=== PATIENT | male | born 1985 | race Caucasian/White ===

== ENCOUNTER 2017-01-12 00:19 | Emergency (ER) | payer MEDICAID, OTHER ==
[~2017-01-12] VITALS: Ht 167.6 cm; Wt 91.0 kg
[2017-01-12 00:21] VITALS: Ht 167.6 cm; Wt 91.0 kg
[2017-01-12] MEDS ORDERED: LIDOCAINE 1% (MDV) 20 ML INJ INJ STA (03:58)
[2017-01-12] MEDS ORDERED: HYDROCODONE/APAP (5/325) TAB PO ONE (04:00)
[2017-01-12] MEDS ORDERED: IBUP-1542 PO (04:44)
[2017-01-12] MEDS ORDERED: HYDR-906 PO (04:44)
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
== END 2017-01-12 04:55 | disposition home or self-care (01) ==
LOC: FTE 00:19
DX: S01.511A Laceration without foreign body of lip, initial encounter (principal); Y08.89XA Assault by other specified means, initial encounter
CPT/HCPCS: 12011; Z7610

== ENCOUNTER 2017-01-15 21:23 | Emergency (ER) | payer MEDICAID ==
[~2017-01-15] VITALS: Ht 167.6 cm; Wt 91.5 kg
[~2017-01-15 21:23] MED LIST: HYDR-906 PO; IBUP-1542 PO
[2017-01-15 21:27] VITALS: Ht 167.6 cm; Wt 91.5 kg
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
== END 2017-01-15 22:24 | disposition home or self-care (01) ==
LOC: FTE 21:23
DX: Z48.01 Encounter for change or removal of surgical wound dressing (principal)
CPT/HCPCS: 99281

== ENCOUNTER 2017-01-23 03:10 | Emergency (ER) | payer MEDICAID ==
[~2017-01-23] VITALS: Ht 160 cm; Wt 92.0 kg
[2017-01-23 03:15] VITALS: Ht 160 cm; Wt 92.0 kg
[2017-01-23] MEDS ORDERED: CEPH-443 PO (04:11)
--- NOTE | 2017-01-23 04:15 | ERD ---
ER Documentation Chief Complaint Date/Time DATE: 01/23/17 TIME: 04:12 Chief Complaint suture removal upper lip HPI This is a 31-year-old male that presents to the ER for suture removal of his upper lip. Patient denies any fevers or chills. He denies any pain to the area he denies any bleeding. Sutures were put in place 5 days ago. ROS 12 point review of systems was done, all negative except per HPI. Medications Home Meds Active Scripts Cephalexin* (Keflex*) 500 Mg Capsule, 500 MG PO BID for 7 Days, CAP Prov:NAHUN MONTEMAYOR 01/23/17 Hydrocodone/Acetaminophen ([place] 5-325 Tablet) 1 Each Tablet, 1 TAB PO Q6H Y for PAIN, #10 TAB Prov:ONOFRE YAP 01/12/17 Ibuprofen* (Motrin*) 600 Mg Tab, 600 MG PO Q6H Y for PAIN AND OR ELEVATED TEMP, #30 TAB Prov:ONOFRE YAP 01/12/17 Allergies Allergies: Coded Allergies: No Known Allergy (Unverified , 01/12/17) PMhx/Soc Medical and Surgical Hx: pt denies Medical Hx, pt denies Surgical Hx Hx Alcohol Use: No Hx Substance Use: No Hx Tobacco Use: No Smoking Status: Never smoker Physical Exam Vitals Vital Signs Date Time Temp Pulse Resp B/P Pulse Ox O2 Delivery O2 Flow Rate FiO2 01/23/17 03:15 97.2 64 20 134/81 100 Physical Exam GENERAL: The patient is well developed and appropriate for usual state of health , in no apparent distress. HEENT: Atraumatic. CHEST: Clear to auscultation bilaterally. There are no rales, wheezes or rhonchi. HEART: Regular rate and rhythm. No murmurs, clicks, rubs or gallops. NEURO: Alert and oriented. SKIN: 3 simple interrupted sutures are in place in the upper lip, there is some mild yellow discharge, no wound dehiscence. No erythema or swelling. Procedures/MDM Suture Removal by me: Sutures removed with tweezers and scissors without incident. Patient did have some slight yellow discharge, he will be given Keflex for any potential infection. No evidence of wound dehiscence. Patient to follow up PRN. Departure Diagnosis: Primary Impression: Encounter for removal of sutures Condition: Stable Patient Instructions: Suture Removal, No Complication Additional Instructions: Call your primary care doctor TOMORROW for an appointment during the next 1-2 days.See the doctor sooner or return here if your condition worsens before your appointment time. NAHUN MONTEMAYOR Jan 23, 2017 04:15
== END 2017-01-23 04:51 | disposition home or self-care (01) ==
LOC: FTE 03:10
DX: Z48.02 Encounter for removal of sutures (principal)
CPT/HCPCS: 99283